=== PATIENT | male | born 1995 | race Hispanic/Latino ===

== ENCOUNTER 2022-10-24 00:33 | Emergency (ER) | payer SELFPAY ==
[2022-10-24 00:45] VITALS: BP 126/79
[2022-10-24 01:00] VITALS: BP 118/67
[2022-10-24 01:15] VITALS: BP 120/68
[2022-10-24 01:30] VITALS: BP 118/77
[2022-10-24 01:46] VITALS: BP 118/77
== END 2022-10-24 01:58 | disposition home or self-care (01) | DRG 605 ==
LOC: EDBD 00:33 → ED 00:33
PROC: 0HQKXZZ Repair Right Lower Leg Skin, External Approach (ICD-10-PCS; principal; 2022-10-24)
DX: S81.011A Laceration without foreign body, right knee, initial encounter (principal); W22.8XXA Striking against or struck by other objects, initial encounter

== ENCOUNTER 2022-11-25 19:51 | Emergency (ER) | payer SELFPAY ==
[~2022-11-25] VITALS: Ht 162.6 cm; Wt 62.0 kg
[2022-11-25 21:44] VITALS: BP 117/75
== END 2022-11-25 21:53 | disposition home or self-care (01) | DRG 605 ==
LOC: ED 19:51
DX: S20.213A Contusion of bilateral front wall of thorax, initial encounter (principal); Y00.XXXA Assault by blunt object, initial encounter; Y92.009 Unspecified place in unspecified non-institutional (private) residence as the place of occurrence of the external cause